=== PATIENT | female | born 1940 | race American Indian/Alaskan Native ===

== ENCOUNTER 2018-07-14 11:03 | Emergency (ER) | payer MEDICARE ==
[2018-07-14 11:28] VITALS: PULSE 148; RESP 18; TEMP 98; BMI 28.3
[2018-07-14] MEDS ORDERED: Bacitracin 500 Units/gm Oint Foilpak UD TOP STA (11:57)
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
[2018-07-14] MEDS ORDERED: Bacitracin 500 Units/gm Oint Foilpak UD ONE (12:04)
[2018-07-14 12:23] VITALS: BP 176/86
[2018-07-14 17:22] VITALS: O2SAT 97
== END 2018-07-14 12:25 | disposition home or self-care (01) ==
LOC: C.ER 11:03
DX: T24.011A Burn of unspecified degree of right thigh, initial encounter (principal); X12.XXXA Contact with other hot fluids, initial encounter; E03.9 Hypothyroidism, unspecified; E78.00 Pure hypercholesterolemia, unspecified; I10 Essential (primary) hypertension; I48.91 Unspecified atrial fibrillation

== ENCOUNTER 2018-07-24 12:08 | Outpatient (CLI) | payer MEDICARE | END 2018-07-24 12:09 | disposition home or self-care (01) | LOC: C.CTH 12:09 ==